=== PATIENT | male | born 1995 | race Caucasian/White ===

== ENCOUNTER 2024-06-26 23:01 | Emergency (ER) | payer OTHER, MEDICAID, SELFPAY ==
[2024-06-26 23:05] VITALS: BP 136/81; PULSE 76; RESP 16; TEMP 36.8; O2SAT 99; BMI 27.0
--- NOTE | 2024-06-26 23:21 | ED_ITS ---
HPI - Ear Problem General Chief complaint: Ear Stated complaint: foreign object in ear Time Seen by Provider: 06/26/24 23:07 Source: patient Mode of arrival: Ambulatory History of Present Illness HPI Narrative: 28-year-old male complains of foreign body sensation to left ear canal, moth was flying around his proximity shortly before that sensation, believes that a flying off entered his left ear canal, he has been unable to get it out, it still intermittently has been moving. No blood or discharge. No other injuries. He has not had any vertigo, nausea or vomiting. Related Data Allergies Allergy/AdvReac Type Severity Reaction Status Date / Time No Known Drug Allergies Allergy Unverified 12/21/23 10:45 Review of Systems Review of Systems Narrative: Per HPI Patient History Medical History (Updated 06/26/24 @ 23:40 by Dallas Morris MD) ADHD (~2007) Surgical History (Updated 09/04/19 @ 22:06 by Julia Lazo) Anesthesia History of tonsillectomy Family History (Updated 09/04/19 @ 22:06 by Julia Lazo) Father Diabetes mellitus Mother Diabetes mellitus Social History Smoking Status: Former smoker Smoking Status: Former smoker alcohol intake frequency: holidays/special occasions only Substance Use Type: does not use Exam Narrative Exam Narrative: GENERAL: Well-developed patient, in mild distress. HEAD: Atraumatic. Normocephalic. EYES: Pupils equal round and reactive. Extraocular motions intact. No scleral icterus. No injection or drainage. ENT: Right TM and EAC unremarkable. Left TM not visualized due to arthropod body/legs appearance in the EAC, no blood or purulence. Nose without bleeding, purulent drainage. Throat without erythema, tonsillar hypertrophy or exudate. Airway patent. NECK: Trachea midline. Non tender CARDIOVASCULAR: Regular rate and rhythm without murmurs, gallops, or rubs. RESPIRATORY: Clear to auscultation. Breath sounds equal bilaterally. No wheezes, rales, or rhonchi. GASTROINTESTINAL: Abdomen soft, non-tender, nondistended. EXTREMITIES: No edema or joint tenderness. BACK: Nontender without deformity or crepitance. No flank tenderness. NEURO: AOx3. Nonfocal gross motor exam SKIN: No rash or erythema of visible areas Initial Vital Signs Initial Vital Signs: Vital Signs Temperature 98.3 F 06/26/24 23:05 Pulse Rate 76 08/10/24 23:05 Respiratory Rate 16 06/26/24 23:05 Blood Pressure 136/81 06/26/24 23:05 Pulse Oximetry 99 06/26/24 23:05 Oxygen Delivery Method Room Air 06/26/24 23:05 Course Orders Ordered: Discontinued Medications Lidocaine HCl (Lidocaine Viscous 2% 15 Ml Solution) 15 ml TOP NOW ONE Stop: 06/26/24 23:21 Last Admin: 06/26/24 23:25 Dose: 15 ml Documented By: AB Vital Signs Vital signs: Vital Signs - 8 hr 06/26/24 23:05 Temperature 98.3 F Pulse Rate 76 Respiratory Rate 16 Blood Pressure 136/81 Pulse Oximetry 99 Oxygen Delivery Method Room Air Medical Decision Making MDM Narrative Medical decision making narrative: Living flying arthropod suspected moth into left ear canal, still recently m oving, here for removal. Instillation left ear canal viscous lidocaine to provide some analgesia and suffocate the offending arthropod, with subsequent gentle irrigation to hopefully remove. Patient expressed understanding, lidocaine placed by nursing, patient in right lateral decubitus position for the next 15 minutes. Irrigation to follow Irrigation resulted in removal of lifeless appearing moth that appeared intact. Post irrigation otoscopic examination EAC and TM unremarkable, no retained products, no obvious traumatic sequelae. Stable, improved, return as needed. Discharged home. Discharge Plan Departure Patient Disposition: Home Clinical Impression: Acute foreign body of ear canal Activity Restrictions/Additional Instructions: Flying jordan foreign body to left ear canal, removed via irrigation after viscous lidocaine analgesia and suffocation. Intact appearing moth removed with irrigation. No obvious infectious changes to the ear canal or injury patterns noted on re-examination after mouth removal. Recheck as needed. Referrals: Miscellaneous,Doctor, MD [Primary Care Provider] - Stand Alone Forms: Patient Portal/API
[2024-06-26] MEDS: LIDOCAINE VISCOUS 2% 15 ML SOLUTION TOP (23:25)
--- NOTE | 2024-06-26 23:58 | PC.NURSE ---
Pt states that he can feel a bug/moth in his left ear.
== END 2024-06-27 00:01 | disposition home or self-care (01) ==
PROVIDERS: Emergency Provider Emergency Medicine; Family Provider Pediatrics
DX: T16.2XXA Foreign body in left ear, initial encounter (principal)
CPT/HCPCS: 99282